=== PATIENT | male | born 1950 | race Caucasian/White ===

== ENCOUNTER 2016-08-03 09:08 | Emergency (ER) | payer MEDICARE, OTHER ==
[~2016-08-03 09:08] MED LIST: LISINOPRIL10 MG PO; NORVASC10 MG PO; REBIF 44 M44 MCG/0.5 SQ
[2016-08-03] MEDS ORDERED: TYSABRI IV (09:33)
[2016-08-03] MEDS ORDERED: VITAMIN D31000 UNI3 PO (09:33)
[2016-08-03] MEDS ORDERED: BISCOLAX10 MG PR (09:33)
[2016-08-03] MEDS ORDERED: METOPROLOL TART25 M1 PO (09:33)
[2016-08-03] MEDS ORDERED: HIPREX1 GM PO (09:33)
[2016-08-03] MEDS ORDERED: ZINBRYTA150 MG/1 M IM (09:36)
== END 2016-08-03 11:13 ==
LOC: EDMED 09:08
PROC: 0T9B70Z Drainage of Bladder with Drainage Device, Via Natural or Artificial Opening (ICD-10-PCS; principal; 2016-08-03)
DX: T83.098A Other mechanical complication of other urinary catheter, initial encounter (principal); E66.01 Morbid (severe) obesity due to excess calories